=== PATIENT | female | born 1975 | race Caucasian/White ===

== ENCOUNTER 2021-06-25 12:24 | Emergency (ER) | payer BC, SELFPAY ==
[2021-06-25 12:45] VITALS: BP 126/67; PULSE 97; RESP 14; TEMP 36.9; O2SAT 96; BMI 24.5
--- NOTE | 2021-06-25 13:00 | US_ITS ---
WS: [id number] ULTRASOUND RIGHT GROIN AREA OF CONCERN CLINICAL INFORMATION: pain severe, possible abd wall muscle tear COMPARISON: None. FINDINGS: No visualized inguinal hernia or herniated bowel. Normal underlying subcutaneous soft tissu es. No change with Valsalva. Normal femoral vessels. Incidental RIGHT ovarian cyst measuring 2.5 x 3. 1 x 2.4 cm US/US abdomen limited [id number] IMPRESSION: 1. No evidence of inguinal or ventral abdominal wall hernia. 2. Incidental RIGHT ovarian cyst measuring 2.5 x 3.1 x 2.4 cm
[2021-06-25 13:07] VITALS: BP 124/69; PULSE 96; RESP 14; O2SAT 97
--- NOTE | 2021-06-25 13:26 | ED_ITS ---
HPI - Abdominal Pain General: Chief Complaint: Abdominal Pain Stated Complaint: Stomach Pain severe Time Seen by Provider: 06/25/21 12:53 History of Present Illness: Patient states she has been seen for the last 3 weeks for right lower area groin pain. Seen by urgent care, then seen by Dr. Hoang who thought he might of felt a lump. Said he is going order MRI MRI has not been performed. Patient is feeling a bit better then she lifted a bag of dog food today and felt a sharp pain there has been bothering her ever since. Denies any nausea vomiting any abdominal pain anywhere else bowels working fine denies any vaginal discharge. Associated Symptoms: Denies chills, fever(s), nausea and vomiting Review of Systems Const: Denies: fever(s), chills or body aches Eyes: Denies: eye discomfort ENMT: Denies: throat pain Card: Denies: chest pain Resp: Denies: dyspnea GI: Reports: abdominal pain (Groin area right side present for 2 to 3 weeks.); Denies: nausea or vomiting Skin/Breast: Denies: rash Neuro: Denies: headache(s) Psych: Denies: depression or suicidal ideation PFS ED PFSH: Surgical History History of endometrial ablation History of surgery CYST REMOVAL OF OVARY History of tubal ligation 1999 Family History Other CAD (coronary artery disease) Cancer Denies family history of Diabetes Dementia Stroke Social History Smoking and tobacco status: former smoker Physical Exam Const: COMMON NORMALS: no acute distress, patient oriented x3 and alert HENMT: COMMON NORMALS: normocephalic and external ears normal HEAD & SCALP: normocephalic EXTERNAL EAR: Yes external ears normal Eye: COMMON NORMALS: EOMs intact bilaterally Neck/C-Spine: COMMON NORMALS: no JVD Resp: COMMON NORMALS: normal respiratory effort and No use of accessory muscles Cardio: COMMON NORMALS: no JVD GI: INSPECTION: No Abdominal wall edema and No abdominal distension AUSCULTATION: Yes normoactive bowel sounds PALPATION: Yes Tenderness to palpation present (GI) (Right groin area, no lump felt. Patient has tenderness with palpation.) Extremity: COMMON NORMALS: normal to inspection and full ROM Neuro: COMMON NORMALS: patient oriented x3 SENSORIUM/ORIENTATION: Yes alert Psych: COMMON NORMALS: mental status grossly normal Skin: COMMON NORMALS: no rashes or lesions noted GENERAL SKIN EXAM: no rashes or lesions noted Course Vital Signs: Vital signs: Vital Signs Temperature 98.5 F 06/25/21 12:45 Pulse Rate 96 06/25/21 13:07 Respiratory Rate 14 06/25/21 13:07 Blood Pressure 124/69 06/25/21 13:07 Pulse Oximetry 97 06/25/21 13:07 MDM - Abdominal Pain Medical Decision Making Right ovarian cyst based on ultrasound reports. Patient instructed not to do any heavy lifting for next couple weeks continue follow-up Dr. Hoang if symptoms do not improve. Take medication directed. Discharge Plan Discharge Patient Disposition: Home Clinical Impression: Ovarian cyst Condition: Stable Prescriptions: New Celebrex 100 mg capsule 200 mg PO BID Qty: 20 0RF Discharge Orders: Discharge ED (Routine); Ordered 06/25/21 Ordered By: Sea Villalpando Discharge Diet: Usual diet Discharge Activity: Increase activity as tolerated Patient Instructions: Ovarian Cyst (ED) Activity Restrictions/Additional Instructions: Follow-up with medical provider as directed. Take medications as prescribed. Return to the ER or your medical provider if condition worsens. Please read and understand discharge instructions. If any questions ask please. No lifting over 10 pounds for next 2 weeks. Coding Level of Care Code ED [employer] for Norma Mosqueda
== END 2021-06-25 13:33 | disposition home or self-care (01) ==
PROVIDERS: Emergency Provider Nurse Practitioner Family
DX: N83.201 Unspecified ovarian cyst, right side (principal); Z87.891 Personal history of nicotine dependence
CPT/HCPCS: 76705; 99282

== ENCOUNTER 2021-07-07 13:43 | Outpatient (CLI) | payer BC, SELFPAY ==
--- NOTE | 2021-07-07 14:00 | CTR_ITS ---
PROCEDURE INFORMATION: Exam: CT Pelvis Without Contrast Exam date and time: 07/07/2021 2:00 PM Age: 45 years old Clinical indication: Pelvic pain; Patient HX: RT inguinal pain, R/O hernia. Prior HX RT ovarian cysts; Additional info: R10.31 - right lower quadrant pain TECHNIQUE: Imaging protocol: Computed tomography images of the pelvis without contrast. Radiation optimization: All CT scans at this facility use at least one of these dose optimization techniques: automated exposure control; mA and/or kV adjustment per patient size (includes targeted exams where dose is matched to clinical indication); or iterative reconstruction. COMPARISON: US abdomen limited [id number] 06/25/2021 1:13 PM RADIATION DOSE METRICS: Total DLP (mGy-cm): 560.17 FINDINGS: Stomach and bowel: Colonic diverticulosis without findings of acute diverticulitis. Otherwise, visualized small bowel and colon are unremarkable. Appendix: No evidence of appendicitis. Intraperitoneal space: Unremarkable. No free air. No significant fluid collection. Lymph nodes: Unremarkable. No enlarged lymph nodes. Urinary bladder: Normal. No mass. Reproductive: Normal as visualized. Bones/joints: Unremarkable. No acute fracture. No dislocation. Soft tissues: Unremarkable. Negative for inguinal hernia. CT/CT pelvis con [id number] IMPRESSION: No acute findings. Negative for inguinal hernia.
== END 2021-07-07 13:44 | disposition home or self-care (01) ==
PROVIDERS: PCP Nurse Practitioner Family; Visit Provider Surgery
DX: R10.31 Right lower quadrant pain (principal)
CPT/HCPCS: 72192

== ENCOUNTER 2022-02-12 14:08 | Outpatient (CLI) | payer BC, SELFPAY ==
--- NOTE | 2022-02-12 14:35 | MM_ITS ---
WS: [id number] BILATERAL SCREENING DIGITAL BREAST MAMMOGRAPHY WITH GABRIELLE DISPLACEMENT VIEWS. CAD PERFORMED. HISTORY: SCREENING COMPARISON: None available. Bilateral craniocaudal and mediolateral oblique views are performed with tomosynthesis and SM. Gabrielle displacement views in CC and MLO projection also performed. Breasts composition: The breasts are heterogeneously dense, which may obscure small masses. Implants are intact. No suspicious masses or calcifications. MM/[place] [id number] IMPRESSION: BI-RADS: 2-Benign FOLLOW-UP: 1 Year Follow-up
== END 2022-02-12 14:09 | disposition home or self-care (01) ==
LOC: RAD 14:11
PROVIDERS: PCP Nurse Practitioner Family; Visit Provider Nurse Practitioner Family
DX: Z12.31 Encounter for screening mammogram for malignant neoplasm of breast (principal)
CPT/HCPCS: 77063; 77067

== ENCOUNTER → 2022-03-10 11:50 | Outpatient (BNVA) | payer BC, SELFPAY | PROVIDERS: PCP Nurse Practitioner Family; Visit Provider Nurse Practitioner Women's Health | DX: N93.9 Abnormal uterine and vaginal bleeding, unspecified (principal); Z12.4 Encounter for screening for malignant neoplasm of cervix; R10.2 Pelvic and perineal pain | CPT/HCPCS: 84443; 85025; 87491; 87591; 87624; 87661 ==

== ENCOUNTER → 2022-03-30 14:10 | Outpatient (BNVA) | payer BC, SELFPAY | PROVIDERS: PCP Nurse Practitioner Family; Visit Provider Nurse Practitioner Women's Health | DX: N93.9 Abnormal uterine and vaginal bleeding, unspecified (principal); N83.202 Unspecified ovarian cyst, left side; N83.201 Unspecified ovarian cyst, right side | CPT/HCPCS: 76830 ==

== ENCOUNTER 2024-01-31 09:30 | Outpatient (CLI) | payer BC, SELFPAY ==
--- NOTE | 2024-01-31 09:30 | US_ITS ---
WS: [id number] RIGHT UPPER QUADRANT ULTRASOUND HISTORY: abdominal pain COMPARISON: None available. Liver: 13.8 cm in length. Normal size liver and echogenicity. No bile duct dilatation or mass. Portal Vein: Normal hepatopetal flow with monophasic waveform. Gallbladder: Normally distended gallbladder with no stones or wall thickening. CBD: 0.3 cm Pancreas: Normal size and echogenicity. Right kidney: 9.1 cm in length. Normal size and echogenicity. No hydronephrosis or mass. Aorta and IVC: Unremarkable abdominal aorta and IVC. No ascites. US/US gall bladder [id number] IMPRESSION: Normal right upper quadrant ultrasound.
== END 2024-01-31 09:32 | disposition home or self-care (01) ==
PROVIDERS: PCP Nurse Practitioner Family; Visit Provider Surgery
DX: R10.9 Unspecified abdominal pain (principal)
CPT/HCPCS: 76705

== ENCOUNTER 2024-02-22 08:26 | Day surgery (SDC) | payer BC, SELFPAY ==
[2024-02-22 08:42] VITALS: BMI 3149.4
[2024-02-22 08:51] VITALS: BP 102/78; PULSE 98; RESP 18; TEMP 37.2; O2SAT 99
[2024-02-22] MEDS: sodium chloride 0.9% 1,000 ML 30 ML IV (09:03)
--- NOTE | 2024-02-22 09:47 | PM.HP ---
Providers/Chief Complaint Primary Care Provider: Nannette Paul NP Chief Complaint: R10.9, K21.9 History of Present Illness Leora Broussard is a 48 year old female Review of Systems General: Reports: 10 or more systems reviewed and unremarkable except in HPI and below Medications/Allergies Home Medications Medication Instructions Recorded Confirmed Last Taken Type No Known Home Medications 02/20/24 02/22/24 Unknown History Allergies Allergy/AdvReac Type Severity Reaction Status Date / Time acetaminophen [From Midol PM] Allergy Mild hives Verified 02/20/24 10:40 diphenhydramine Allergy Mild hives Verified 02/20/24 10:40 [From Midol PM] PFSH Acute PFSH: Medical History No pertinent past medical history neghx: htn, dm, thyroid, dvt/pe PCP: Dr. Paul Surgical History H/O LEEP reports 3-4 of these procedures for abnormal paps. Last one was in . History of laparoscopy reports a uterine tumor that was removed; states it was not a fibroid. Reports cyst on the ovary was also removed. History of laparoscopy ovarian cyst removed. Unsure of laterality. History of laparoscopy Endometriosis found during surgery and treated. In [facility]. History of endometrial ablation (~2017) performed in [facility] for [facility]. History of tubal ligation (~1993) Family History Grandmother Breast cancer Maternal Father Heart disease Brother Heart disease Mother Hyperlipidemia Stroke Family/Other Colon cancer Other CAD (coronary artery disease) Cancer Denies family history of Ovarian cancer Diabetes Dementia Family history of thyroid problem Hypertension Uterine cancer Social History Smoking and tobacco/nicotine status: former use of tobacco/nicotine Vitals/I&O/Wt Last Vital Signs Temp 98.9 F 02/22/24 08:51 Pulse 98 02/22/24 08:51 Resp 18 02/22/24 08:51 BP 102/78 02/22/24 08:51 Pulse Ox 99 02/22/24 08:51 O2 Del Method Room Air 02/22/24 08:51 Weight last 48 hrs Weight 112 lb A&P Assessment and plan (1) Abdominal pain: (2) Chronic diarrhea: (3) GERD (gastroesophageal reflux disease): (4) Family history of colon cancer: Plan EGD and colonoscopy with random biopsies Attestations Medical Necessity Statement*: Home Coding Level of Care Code Acute Code for Chg Fwd Diagnoses Abdominal pain R10.9 Chronic diarrhea K52.9 GERD (gastroesophageal reflux disease) K21.9 Family history of colon cancer Z80.0
--- NOTE | 2024-02-22 09:51 | P.ANESASSM_ITS ---
Pre-Anesthetic Assessment Height/Weight: Height 12.7 cm Weight 50.802 kg Temp Pulse Resp BP Pulse Ox O2 Del Method 98.9 F 98 18 102/78 99 Room Air 02/22/24 08:51 02/22/24 08:51 02/22/24 08:51 02/22/24 08:51 02/22/24 08:51 02/22/24 08:51 Preop Diagnosis: GERD Operation Date: 02/22/24 09:30 Proposed Procedures p Colonoscopy 12416, G0105, R10.9, K21.9 05576,(Not Applicable) - Ming Arndt DO s EGD(Not Applicable) - Ming Arndt DO Was Beta Celestina taken within 24 hours: N/A Was Clonidine taken within 24 hours: N/A Last intake: Intake Last Liquid Date 02/21/24 Last Liquid Time 23:30 Last Solid Date 02/20/24 Last Solid Time 09:00 Social No alcohol and No tobacco Exam alert and oriented x 3 Airway Submandibular: within normal limits Cervical ROM: within normal limits Mallampati: Class II History/ROS No significant history except as noted Pulmonary Asthma (seasonal allergies) and Sleep Apnea (no cpap) CV/HEM None reported None reported Hepatic None reported GI Gastroesophageal Reflux Disease Metabolic None reported Musc/skel None reported Neuropsych None reported Anesthetic Plan ASA status: 2 Anesthesia: MAC Risk of > 500 ml blood loss (7ml/kg in children): No Medications/Allergies Home Medications Medication Instructions Recorded Confirmed Last Taken Type No Known Home Medications 02/20/24 02/22/24 Unknown History Allergies Allergy/AdvReac Type Severity Reaction Status Date / Time acetaminophen [From Midol PM] Allergy Mild hives Verified 02/20/24 10:40 diphenhydramine Allergy Mild hives Verified 02/20/24 10:40 [From Midol PM] Current Medications Generic Name Dose Route Start Last Admin Trade Name Freq PRN Reason Stop Dose Admin Sodium Chloride 1,000 mls @ 30 mls/hr 02/22/24 08:45 02/22/24 09:03 Sodium Chloride 0.9% IV 02/23/24 08:44 30 mls/hr .Q24H CALLIE Administration PFSH Anesthesia Medical History No pertinent past medical history neghx: htn, dm, thyroid, dvt/pe PCP: Dr. Paul Surgical History H/O LEEP reports 3-4 of these procedures for abnormal paps. Last one was in 1989's. History of laparoscopy reports a uterine tumor that was removed; states it was not a fibroid. Reports cyst on the ovary was also removed. History of laparoscopy ovarian cyst removed. Unsure of laterality. History of laparoscopy Endometriosis found during surgery and treated. In [facility]. History of endometrial ablation (~2017) performed in [facility] for [facility]. History of tubal ligation (~1993) Family History Grandmother Breast cancer Maternal Father Heart disease Brother Heart disease Mother Hyperlipidemia Stroke Family/Other Colon cancer Other CAD (coronary artery disease) Cancer Denies family history of Ovarian cancer Diabetes Dementia Family history of thyroid problem Hypertension Uterine cancer Social History Smoking and tobacco/nicotine status: former use of tobacco/nicotine Data Anesthesia Cardiac Studies: No Data to Display
[2024-02-22 10:19] VITALS: BP 90/57; PULSE 85; RESP 18; O2SAT 98
[2024-02-22 10:32] VITALS: BP 105/68; PULSE 85; RESP 18; O2SAT 97
[2024-02-22 10:42] VITALS: BP 124/69; PULSE 87; RESP 18; O2SAT 99
--- NOTE | 2024-02-22 11:13 | ANE.PACU2 ---
Inpatient post-anesthesia follow up: Airway intact: Yes Vital signs: Temperature 98.9 F Pulse Rate 87 Respiratory Rate 18 Blood Pressure 124/69 Pulse Oximetry 99 Oxygen Delivery Me thod Room Air Oxygen Flow Rate Fraction of Inspir ed Oxygen Hydration adequate: Yes Nausea and vomiting: No Pain level: 1 Mental status: Baseline
[2024-02-22 12:05] LABS: C.Diff PCR (Lab) NEGATIVE (Negative)
[2024-02-24 17:20] LABS: Beef Class 0/1; Lamb (F88) IgE <0.10 kU/L; Lamb Class 0; Pork (F26) IgE 0.11 kU/L; Pork Class 0/1
== END 2024-02-22 11:13 | disposition home or self-care (01) ==
PROVIDERS: PCP Nurse Practitioner Family; Visit Provider Surgery
PROC: 0DJD8ZZ Inspection of Lower Intestinal Tract, Via Natural or Artificial Opening Endoscopic (ICD-10-PCS; CPT 45378; principal; 2024-02-22 09:30)
PROC: 0DJ08ZZ Inspection of Upper Intestinal Tract, Via Natural or Artificial Opening Endoscopic (ICD-10-PCS; CPT 43235; 2024-02-22 09:30)
DX: K52.9 Noninfective gastroenteritis and colitis, unspecified (principal); Z80.0 Family history of malignant neoplasm of digestive organs; K57.30 Diverticulosis of large intestine without perforation or abscess without bleeding; K64.8 Other hemorrhoids; J45.909 Unspecified asthma, uncomplicated; G47.30 Sleep apnea, unspecified; K21.9 Gastro-esophageal reflux disease without esophagitis; Z87.891 Personal history of nicotine dependence
CPT/HCPCS: 36415; 43239; 45380; 82274; 83630; 86003; 86008; 87045; 87177; 87209; 87427; 87449; 87493; 88305; J2704; J7030

== ENCOUNTER 2024-04-12 08:13 | Day surgery (SDC) | payer BC, SELFPAY ==
[2024-04-12] VITALS (14 sets, daily range): BP systolic 90–114; BP diastolic 53–75; PULSE 74–89; RESP 14–18; TEMP 36.2–37; O2SAT 97–100; BMI 3149.4
--- NOTE | 2024-04-12 08:21 | PM.HP ---
Providers/Chief Complaint Primary Care Provider: Nannette Paul NP Chief Complaint: K40.20 History of Present Illness Leora Broussard is a 48 year old female Review of Systems General: Reports: 10 or more systems reviewed and unremarkable except in HPI and below Medications/Allergies Home Medications Medication Instructions Recorded Confirmed Last Taken Type No Known Home Medications 03/08/24 04/11/24 Unknown History Allergies Allergy/AdvReac Type Severity Reaction Status Date / Time acetaminophen [From Midol PM] Allergy Mild hives Verified 02/20/24 10:40 diphenhydramine Allergy Mild hives Verified 02/20/24 10:40 [From Midol PM] PFSH Acute PFSH: Medical History Family history of colon cancer No pertinent past medical history neghx: htn, dm, thyroid, dvt/pe PCP: Dr. Paul Surgical History History of colonoscopy History of esophagogastroduodenoscopy (EGD) H/O LEEP reports 3-4 of these procedures for abnormal paps. Last one was in . History of laparoscopy reports a uterine tumor that was removed; states it was not a fibroid. Reports cyst on the ovary was also removed. History of laparoscopy ovarian cyst removed. Unsure of laterality. History of laparoscopy Endometriosis found during surgery and treated. In [facility]. History of endometrial ablation (~2017) performed in [facility] for [facility]. History of tubal ligation (~1993) Family History Grandmother Breast cancer Maternal Father Heart disease Brother Heart disease Mother Hyperlipidemia Stroke Family/Other Colon cancer Other CAD (coronary artery disease) Cancer Denies family history of Ovarian cancer Diabetes Dementia Family history of thyroid problem Hypertension Uterine cancer Social History Smoking and tobacco/nicotine status: never used tobacco/nicotine A&P Assessment and plan (1) Bilateral inguinal hernia: Plan Bilateral inguinal hernias with mesh Attestations Medical Necessity Statement*: Home Coding Level of Care Code Acute Code for Chg Fwd Diagnoses Bilateral inguinal hernia K40.20
[2024-04-12] MEDS: sodium chloride 0.9% 1,000 ML 30 ML IV (08:57)
--- NOTE | 2024-04-12 09:00 | P.ANESASSM_ITS ---
Pre-Anesthetic Assessment Height/Weight: Height 12.7 cm Weight 50.802 kg Temp Pulse Resp BP Pulse Ox O2 Del Method 98.6 F 89 18 104/72 97 Room Air 04/12/24 08:34 04/12/24 08:34 04/12/24 08:34 04/12/24 08:34 04/12/24 08:34 04/12/24 08:34 Operation Date: 04/12/24 09:45 Proposed Procedures p laparoscopic bilateral inguinal hernia repair with mesh 21891, K40.20(Bilateral) - Ming Arndt DO Familial anesthetic complications: alpha gal Was Beta Celestina taken within 24 hours: N/A Was Clonidine taken within 24 hours: N/A Last intake: Intake Last Liquid Date 04/11/24 Last Liquid Time 22:00 Last Solid Date 04/12/24 Last Solid Time 19:00 Social No alcohol and No tobacco Exam alert, oriented x 3, clear to auscultation bilaterally and regular rate & rhythm Airway Mallampati: Class I Dentition: full Anesthetic Plan ASA status: 2 Anesthesia: General Risk of > 500 ml blood loss (7ml/kg in children): No Medications/Allergies Home Medications Medication Instructions Recorded Confirmed Last Taken Type No Known Home Medications 03/08/24 04/11/24 Unknown History Allergies Allergy/AdvReac Type Severity Reaction Status Date / Time acetaminophen [From Midol PM] Allergy Mild hives Verified 02/20/24 10:40 diphenhydramine Allergy Mild hives Verified 02/20/24 10:40 [From Midol PM] Alpha-Gal Allergy ADR-Gastrointestinal Verified 04/12/24 08:32 (Xftlqusov-Jenxe-7,3-Gala Upset Current Medications Generic Name Dose Route Start Last Admin Trade Name Freq PRN Reason Stop Dose Admin Sodium Chloride 1,000 mls @ 30 mls/hr 04/12/24 08:30 04/12/24 08:57 Sodium Chloride 0.9% IV 04/13/24 08:29 30 mls/hr .Q24H CALLIE Administration PFSH Anesthesia Medical History Family history of colon cancer No pertinent past medical history neghx: htn, dm, thyroid, dvt/pe PCP: Dr. Paul Surgical History History of colonoscopy History of esophagogastroduodenoscopy (EGD) H/O LEEP reports 3-4 of these procedures for abnormal paps. Last one was in 1989's. History of laparoscopy reports a uterine tumor that was removed; states it was not a fibroid. Reports cyst on the ovary was also removed. History of laparoscopy ovarian cyst removed. Unsure of laterality. History of laparoscopy Endometriosis found during surgery and treated. In [facility]. History of endometrial ablation (~2017) performed in [facility] for [facility]. History of tubal ligation (~1993) Family History Grandmother Breast cancer Maternal Father Heart disease Brother Heart disease Mother Hyperlipidemia Stroke Family/Other Colon cancer Other CAD (coronary artery disease) Cancer Denies family history of Ovarian cancer Diabetes Dementia Family history of thyroid problem Hypertension Uterine cancer Social History Smoking and tobacco/nicotine status: never used tobacco/nicotine Data Anesthesia Cardiac Studies: No Data to Display
[2024-04-12] MEDS: ceFAZolin 2,000 mg SDV 2000 MG IVP (09:54)
--- NOTE | 2024-04-12 10:11 | P.ANES_ITS ---
Anesthesia Procedures Procedure/Date: 04/12/24 Endotracheal Intubation Procedure Narrative: A time out was performed. My hands were washed immediately prior to the procedure. I wore a surgical cap, mask with protective eyewear, gown and gloves throughout the procedure. The patient was placed on a compliance monitor including continuous pulse oximetry. The patient received Lidocaine, Fentanyl, Versed, & Propofol for induction and for adequate paralysis. See the Anesthesiology staff member's notes for dosing of the medication. Cricoid pressure was used to bring the epiglottis and vocal cords into better focus & view. Using a MAC 3 laryngoscope and a size 7cm endotracheal tube with stylet, the patient was intubated on the first attempt. The stylet was removed and cuff balloon was inflated. Appropriate endotracheal tube position was confirmed by direct visualization of vocal cord passage, fogging of the tube, CO2 colormetric indicator and symmetric breath sounds. The tube was secured at 21 cm at the lips.
[2024-04-12] MEDS: lidocaine-epi 2% PF 1:200,000 20 mL SDV XX (10:29)
[2024-04-12] MEDS: ondansetron 2 mg/ML SDV 2 mL 4 MG IVP (11:13)
[2024-04-12] MEDS: fentaNYL 50 mcg/mL INJ 2mL IVP (11:15)
--- NOTE | 2024-04-12 11:15 | PM.OP ---
Operative Report Date of procedure: April 12, 2024 Surgeon: Ming Arndt DO Procedure: Pre-op diagnosis: Bilateral inguinal hernias Post-op diagnosis: Bilateral direct inguinal hernias Procedure done: Laparoscopic (TEPP) repair of left inguinal hernias with mesh Laparoscopic (TEPP) repair of left inguinal hernias with mesh Implants: Left and right extra-large 3D max Bard mesh is Specimens removed/disposition: None Surgeon: Ming Arndt DO Anesthesia: General and Local Estimated blood loss (mL): 5 Complications: None apparent Brief History: This is a very pleasant 48-year-old female who presented my office with bilateral inguinal hernias. Laparoscopic repair with mesh was indicated. The risk and benefits were explained and documented. Procedure: Patient was wheeled into the operative room and placed on the OR table in a supine position. Abdomen was inspected prepped and draped in usual sterile fashion. Time-out was performed and all present were in agreement. A 15 blade scalpel was used to make 1.2 centimeter incision infraumbilically. Combination of sharp and blunt dissection was performed down to the anterior rectus sheath which was opened sharply. The dissecting balloon was then inserted into the space of Retzius and blown up. We put the camera into the port and identified that we were in the correct space. I then placed 2 5 millimeter trocars suprapubically in the midline. I then used endokitners to bluntly dissect in the space of Retzius out laterally. A direct inguinal hernia was identified on the right. Blunt dissection was performed to dissect down the hernia sac off of the abdominal wall. A arge 3D max Bard right inguinal mesh was then placed into the space of Retzius. The mesh was unrolled and tacked once medially at the pubic bone. The mesh laid out nicely o in the proper position. A direct inguinal hernia was identified on the left. Blunt dissection was performed to dissect down the hernia sac off of the abdominal wall. Hernia sac contained omental fat. A large 3D max Bard left inguinal mesh was then placed into the space of Retzius. The mesh was unrolled and tacked once medially at the pubic bone. The mesh laid out nicely in the proper position. Hernia sacs were held underneath the meshes as the insufflation was released. Incisions were closed with 4-0 Monocryl in a subcuticular interrupted fashion. Skin glue was applied. Patient tolerated the procedure well.
[2024-04-12] MEDS: HYDROmorphone 1 mg/mL INJ 1 mL 0.25 MG IVP (11:35)
--- NOTE | 2024-04-12 11:55 | ANE.PACU2 ---
Inpatient post-anesthesia follow up: Airway intact: Yes Vital signs: Temperature 97.8 F Pulse Rate 78 Respiratory Rate 16 Blood Pressure 104/66 Pulse Oximetry 100 Oxygen Delivery Me thod Room Air Oxygen Flow Rate 10 Fraction of Inspir ed Oxygen Hydration adequate: Yes Nausea and vomiting: No Pain level: 1 Mental status: Baseline
[2024-04-12] MEDS: HYDROcodone-acetaminophen 7.5-325 mg Tablet 1 TAB PO (12:13)
== END 2024-04-12 13:25 | disposition home or self-care (01) ==
PROVIDERS: PCP Nurse Practitioner Family; Visit Provider Surgery
PROC: (CPT 49650; principal; 2024-04-12 09:45)
DX: K40.20 Bilateral inguinal hernia, without obstruction or gangrene, not specified as recurrent (principal); Z80.0 Family history of malignant neoplasm of digestive organs
CPT/HCPCS: 49650; 51702; C1781; J0690; J1100; J1171; J2250; J2405; J2704; J3010; J3490; J7030

== ENCOUNTER 2024-04-12 18:40 | Emergency (ER) | payer BC, SELFPAY ==
[2024-04-12 18:48] VITALS: BP 118/62; PULSE 87; RESP 17; TEMP 36.8; O2SAT 95; BMI 22.6
--- NOTE | 2024-04-12 19:35 | ED_ITS ---
HPI - Allergic Reaction General: Chief complaint: Allergic Reaction Stated complaint: cant breath swollow reaction Time Seen by Provider: 04/12/24 19:29 History of Present Illness: HPI narrative: 48-year-old female who presents emergenc y room with possible allergic reaction. She states she has alpha gal and she took a stool softener that had a gel capsule which caused her reaction. She had hernia surgery earlier today and was taking the stool softener because of that. She says she feels like she cannot swallow or breathe through her mouth but if she concentrates she can breathe through her nose. Lung sounds are clear. Related Data Previous Rx's Medication Instructions Recorded albuterol sulfate 90 mcg/actuation 2 inh inhalation Q4H PRN shortness 04/12/24 aerosol inhaler of breath or wheezing #6.7 grams docusate sodium 100 mg capsule 100 mg PO BID #14 caps 04/12/24 (Colace) hydrocodone 7.5 mg-acetaminophen 1 tab PO Q6H PRN pain #20 tabs 04/12/24 325 mg tablet polyethylene glycol 3350 17 17 g PO DAILY 7 days #119 grams 04/12/24 gram/dose oral powder (Miralax) Allergies Allergy/AdvReac Type Severity Reaction Status Date / Time acetaminophen [From Midol PM] Allergy Mild hives Verified 04/12/24 18:58 diphenhydramine Allergy Mild hives Verified 04/12/24 18:58 [From Midol PM] Alpha-Gal Allergy ADR-Gastrointestinal Verified 04/12/24 18:58 ([id number]-9,3-Gala Upset docusate Allergy ALGY-Anaphy Verified 04/12/24 18:59 laxis Review of Systems Narrative: Constitutional symptoms: Negative except as documented in HPI. Skin symptoms: Negative except as documented in HPI. Eye symptoms: Negative except as documented in HPI. ENMT symptoms: Negative except as documented in HPI. Respiratory symptoms: Negative except as documented in HPI. Cardiovascular symptoms: Negative except as documented in HPI. Gastrointestinal symptoms: Negative except as documented in HPI. Genitourinary symptoms: Negative except as documented in HPI. Musculoskeletal symptoms: Negative except as documented in HPI. Neurologic symptoms: Negative except as documented in HPI. Psychiatric symptoms: Negative except as documented in HPI. Endocrine symptoms: Negative except as documented in HPI. PFSH ED PFSH: Medical History Family history of colon cancer No pertinent past medical history neghx: htn, dm, thyroid, dvt/pe PCP: Dr. Paul Surgical History History of colonoscopy History of esophagogastroduodenoscopy (EGD) H/O LEEP reports 3-4 of these procedures for abnormal paps. Last one was in . History of laparoscopy reports a uterine tumor that was removed; states it was not a fibroid. Reports cyst on the ovary was also removed. History of laparoscopy ovarian cyst removed. Unsure of laterality. History of laparoscopy Endometriosis found during surgery and treated. In [facility]. History of endometrial ablation (~2017) performed in [facility] for AUB. History of tubal ligation (~1993) Family History Grandmother Breast cancer Maternal Father Heart disease Brother Heart disease Mother Hyperlipidemia Stroke Family/Other Colon cancer Other CAD (coronary artery disease) Cancer Denies family history of Ovarian cancer Diabetes Dementia Family history of thyroid problem Hypertension Uterine cancer Social History Smoking and tobacco/nicotine status: never used tobacco/nicotine Physical Exam Narrative: EXAM NARRATIVE: General: Alert, no acute distress. Skin: Warm, dry. Head: Normocephalic, atraumatic. Neck: Supple, trachea midline. Eye: Extraocular movements are intact. Ears, nose, mouth and throat: mucosa moist. Cardiovascular: Regular, Normal peripheral perfusion. Respiratory: Lungs are clear to auscultation, respirations are non-labored, breath sounds are equal, Symmetrical chest wall expansion. Gastrointestinal: Soft, Nontender, Non distended Musculoskeletal: Normal ROM, no deformity. Neurological: Alert and oriented, No focal neurological deficit observed. Psychiatric: Cooperative, anxious and slightly tearful Course Vital Signs: Vital signs: Vital Signs Temperature 98.3 F 04/12/24 18:48 Pulse Rate 87 04/12/24 18:48 Respiratory Rate 17 04/12/24 18:48 Blood Pressure 118/62 04/12/24 18:48 Pulse Oximetry 95 04/12/24 18:48 Oxygen Delivery Me thod Room Air 04/12/24 18:48 MDM - Allergic Reaction Medical Decision Making Medical decision making: Differential diagnosis including but not limited to and based on the above HPI, review of systems and physical exam: In a patient with complaints of allergic reaction have concern for anaphylaxis, medication reactions and viral reactions. Orders placed to evaluate differential diagnosis based on the above differential, HPI and physical exam Reexamination: Patient states she feels much better. No increased work of breathing. No oxygen requirements. Lungs are clear. She requests a refill on her inhaler. Assessment and plan: Allergic reaction ?IV Solu-Medrol, Pepcid and Benadryl. Also racemic epinephrine - Discharged home - Discussed plan with patient. Answered any questions. - Evaluation and treatment of this problem were appropriate in the emergency setting. All radiology interpretation(s) finalized by discharge Discharge Plan Discharge Patient Disposition: Home Clinical Impression: Allergic reaction, Alpha-gal syndrome Condition: Stable Prescriptions: New albuterol sulfate 90 mcg/actuation HFA aerosol inhaler 2 inh inhalation Q4H PRN (Reason: shortness of breath or wheezing) Qty: 6.7 0RF Rx Instructions: Please provide patient with a spacer No Action hydrocodone-acetaminophen 7.5-325 mg tablet 1 tab PO Q6H PRN (Reason: pain) Qty: 20 0RF docusate sodium [Colace] 100 mg capsule 100 mg PO BID Qty: 14 0RF polyethylene glycol 3350 [Miralax] 17 gram/dose powder 17 g PO DAILY 7 Days Qty: 119 0RF Discharge Orders: Discharge ED (Routine); Ordered 04/12/24 Ordered By: Mellisa Richmond Referrals: Nannette Paul NP [Primary Care Provider] - Patient Instructions: Opioid Safety, Pain Management Coding Level of Care Code ED Director Oncology for Evag Panda
[2024-04-12] MEDS: methylPREDNISolone sod succ 125 mg/2 mL INJ IVP (19:39)
[2024-04-12] MEDS: diphenhydrAMINE 50 mg/mL SDV 1mL IVP (19:40)
[2024-04-12 19:42] VITALS: BP 87/69; PULSE 97; O2SAT 94
[2024-04-12] MEDS: famotidine 20 mg/2 mL INJ 40 MG IVP (19:42)
[2024-04-12 20:00] VITALS: BP 112/66; PULSE 94; O2SAT 91
[2024-04-12] MEDS: racepinephrine 0.5 mL Neb INHALATION (20:09)
[2024-04-12 20:30] VITALS: BP 113/60; PULSE 96; O2SAT 92
[2024-04-12 20:45] VITALS: BP 91/50; PULSE 88; O2SAT 97
[2024-04-12 21:11] VITALS: BP 95/66; PULSE 98; O2SAT 97
== END 2024-04-12 21:05 | disposition home or self-care (01) ==
PROVIDERS: Emergency Provider Emergency Medicine; PCP Nurse Practitioner Family
DX: T78.49XA Other allergy, initial encounter (principal); Z91.014 Allergy to mammalian meats; X58.XXXA Exposure to other specified factors, initial encounter
CPT/HCPCS: 36415; 94640; 96374; 96375; 99284; J1200; J2919; J3490